=== PATIENT | male | born 1960 | race Asian ===

== ENCOUNTER 2019-11-04 12:48 | Emergency (ER) | payer MEDICAID ==
[~2019-11-04] VITALS: Ht 175.3 cm; Wt 129.1 kg
[2019-11-04] MEDS ORDERED: HYDR-1475 PO (12:55)
[2019-11-04] MEDS ORDERED: LABE100T8 PO (12:55)
[2019-11-04] MEDS ORDERED: AMLO5TAB9 PO (12:55)
[2019-11-04 14:14] LABS: BASOPHILS % (AUTO) 0.4 % (0.0-2.0); HEMATOCRIT 41.9 % (41-53); HEMOGLOBIN 13.9 g/dL (13.5-17.5); LYMPHOCYTES # (AUTO) 2.2 K/uL (1.0-4.8); LYMPHOCYTES % (AUTO) 15.8 % (22.0-44.0); MEAN CORPUSCULAR HGB CONC 33.2 G/dL (31.0-37.0); MEAN CORPUSCULAR VOLUME 90 fL (80-100); MONOCYTES % (AUTO) 7.3 % (2.0-9.0); NEUTROPHILS # (AUTO) 10.4 K/uL (1.8-7.7); NEUTROPHILS % (AUTO) 74.5 % (40.0-70.0); PLATELET COUNT (AUTO) 352 K/uL (150-450); RED BLOOD CELL COUNT(AUTO) 4.64 MIL/uL (4.50-5.90); RED CELL DISTRIBUTION WIDTH 13.1 % (11.5-14.5)
[2019-11-04 14:34] LABS: ANION GAP 8 mmol/L (8-16); CALCIUM, TOTAL 8.9 mg/dL (8.8-10.5); CARBON DIOXIDE 28 mmol/L (22-29); CHLORIDE 98 mmol/L (98-107); CREATININE 1.08 mg/dL (0.60-1.30); GLOMERULAR FILTR. RATE CALC > 60 mL/min (>60); GLUCOSE,RANDOM 290 mg/dL (70-110); POTASSIUM 3.6 mmol/L (3.5-5.1); SODIUM SERUM 134 mmol/L (136-145); UREA NITROGEN, BLOOD 15 mg/dL (7-18)
[2019-11-04 14:37] LABS: ALANINE AMINOTRANSFERASE 30 U/L (12-78); ALBUMIN 3.3 g/dL (3.4-5.0); ALKALINE PHOSPHATASE 52 U/L (46-116); ASPARTATE AMINOTRANSFERASE 19 U/L (15-37); BILIRUBIN,TOTAL 0.3 mg/dL (0.1-1.0); LIPASE 140 U/L (73-393); TOTAL PROTEIN, SERUM 7.8 g/dL (6.4-8.2)
[2019-11-04] MEDS ORDERED: IOVERSOL 350 MG/ML 150 ML VIAL ONE (15:11)
[2019-11-04] MEDS ORDERED: SODIUM CHLORIDE 0.9% 100 ML ONE (15:11)
[2019-11-04] MEDS ORDERED: MetroNIDAZOLE 500 MG/NACL 100 ML IV ONE (17:30)
[2019-11-04] MEDS ORDERED: CIPROFLOXACIN 400 MG/D5% WATER 200 ML IV ONE (17:30)
[2019-11-04 18:46] VITALS: BP 124/74
== END 2019-11-04 18:48 | disposition home or self-care (01) ==
LOC: EMS 12:50
DX: K57.92 Diverticulitis of intestine, part unspecified, without perforation or abscess without bleeding (principal); I25.10 Atherosclerotic heart disease of native coronary artery without angina pectoris; I10 Essential (primary) hypertension; F17.210 Nicotine dependence, cigarettes, uncomplicated
CPT/HCPCS: 36415; 74177; 80053; 83690; 84484; 85025; 93005; 96365; 96368; 99285; J0744; J3490; J7050; Q9967

== ENCOUNTER 2019-11-09 10:45 | Inpatient (IN) | payer MEDICAID ==
[~2019-11-09] VITALS: Ht 175.3 cm; Wt 83.6 kg
[~2019-11-09 10:45] MED LIST: AMLO5TAB9 PO; HYDR-1475 PO; LABE100T8 PO
[2019-11-09] MEDS ORDERED: KETOROLAC TROMETHAMINE 30 MG/ML VIAL IVP ONE (12:30)
[2019-11-09] MEDS ORDERED: ONDANSETRON HCL 4 MG/2 ML VIAL IVP ONE (12:30)
[2019-11-09] MEDS ORDERED: SODIUM CHLORIDE 0.9% 1,000 ML IV ONE ×3 (12:30→22:00)
[2019-11-09 12:47] LABS: BASOPHILS % (AUTO) 0.7 % (0.0-2.0); EOSINOPHILS % (AUTO) 1.4 % (1.0-6.0); HEMATOCRIT 41.2 % (41-53); LYMPHOCYTES # (AUTO) 2.1 K/uL (1.0-4.8); LYMPHOCYTES % (AUTO) 11.5 % (22.0-44.0); MEAN CORPUSCULAR HEMOGLOBIN 30.3 pg (26.0-34.0); MEAN CORPUSCULAR VOLUME 89 fL (80-100); MONOCYTES # (AUTO) 1.4 K/uL (0.1-1.0); MONOCYTES % (AUTO) 7.9 % (2.0-9.0); NEUTROPHILS # (AUTO) 14.4 K/uL (1.8-7.7); NEUTROPHILS % (AUTO) 78.5 % (40.0-70.0); PLATELET COUNT (AUTO) 431 K/uL (150-450); RED BLOOD CELL COUNT(AUTO) 4.63 MIL/uL (4.50-5.90)
[2019-11-09 12:56] LABS: CALCIUM, TOTAL 9.4 mg/dL (8.8-10.5); CREATININE 1.25 mg/dL (0.60-1.30); POTASSIUM 3.6 mmol/L (3.5-5.1)
[2019-11-09 13:01] LABS: ALBUMIN 3.3 g/dL (3.4-5.0); BILIRUBIN,TOTAL 0.4 mg/dL (0.1-1.0)
[2019-11-09 15:03] LABS: APPEARANCE,URINE CLEAR (CLEAR); BILIRUBIN,URINE NEGATIVE (NEGATIVE); GLUCOSE, URINE (UA) NEGATIVE (NEGATIVE); KETONES,URINE NEGATIVE (NEGATIVE); LEUKOCYTE ESTERASE ,URINE TRACE (NEGATIVE); NITRATE,URINE NEGATIVE (NEGATIVE); OCCULT BLOOD,URINE NEGATIVE (NEGATIVE); PROTEIN,URINE NEGATIVE (NEGATIVE); UROBILINOGEN,URINE 0.2 mg/dL (<=1.0)
[2019-11-09] MEDS ORDERED: IOVERSOL 350 MG/ML 100 ML VIAL ONE (15:22)
[2019-11-09] MEDS ORDERED: SODIUM CHLORIDE 0.9% 100 ML ONE (15:22)
[2019-11-09 15:44] LABS: BACTERIA,URINE Rare /HPF (None Seen); RBC,URINE 0-2 /HPF (0-2); SQUAMOUS EPITHELIAL CELL,UR Rare /LPF (None Seen)
[2019-11-09] MEDS ORDERED: PIPERACILLIN/TAZO 3.375 GM/D5W 50 ML IV ONE (17:00)
[2019-11-09] MEDS ORDERED: 0.9% SODIUM CHLORIDE 10 ML SYRINGE IVP PRN (18:45)
[2019-11-09] MEDS ORDERED: ACETAMINOPHEN 325 MG TABLET PO PRN ×2 (18:45→22:00)
[2019-11-09] MEDS ORDERED: ONDANSETRON HCL 4 MG/2 ML VIAL IVP PRN ×2 (18:45→22:00)
[2019-11-09 18:47] VITALS: BP 130/72
[2019-11-09 20:06] VITALS: BP 117/70
[2019-11-09] MEDS ORDERED: MORPHINE SULFATE 2 MG/ML SYRINGE IVP PRN (22:00)
[2019-11-09] MEDS ORDERED: BISACODYL 10 MG RECTAL RECTAL SUPPOSITORY PR PRN (22:00)
[2019-11-09] MEDS ORDERED: ZOLPIDEM TARTRATE 5 MG TABLET PO PRN (22:00)
[2019-11-09] MEDS ORDERED: MAGNESIUM HYDROXIDE SUSPENSION 30 ML UDCUP PO PRN (22:00)
[2019-11-09] MEDS: MetroNIDAZOLE 500 MG/NACL 100 ML IV SCH (22:33)
[2019-11-09 23:31] VITALS: BP 121/75
[2019-11-09] MEDS: HEPARIN SODIUM,PORCINE 5,000 UNITS/ML VIAL SQ SCH (23:50)
[2019-11-09] MEDS: PIPERACILLIN/TAZO 3.375 GM/D5W 50 ML IV SCH (23:50)
[2019-11-09] MEDS: HYDROCODONE/ACETAMINOPHEN 5-325 MG TABLET PO PRN (23:59)
[2019-11-10 05:13] VITALS: BP 129/69
[2019-11-10] MEDS: PIPERACILLIN/TAZO 3.375 GM/D5W 50 ML IV SCH ×4 (05:47→23:25)
[2019-11-10 06:01] LABS: BASOPHILS % (AUTO) 0.3 % (0.0-2.0); EOSINOPHILS % (AUTO) 1.7 % (1.0-6.0); HEMATOCRIT 36.9 % (41-53); HEMOGLOBIN 12.5 g/dL (13.5-17.5); LYMPHOCYTES % (AUTO) 13.9 % (22.0-44.0); MEAN CORPUSCULAR HEMOGLOBIN 30.3 pg (26.0-34.0); MEAN CORPUSCULAR HGB CONC 33.9 G/dL (31.0-37.0); MEAN CORPUSCULAR VOLUME 90 fL (80-100); MONOCYTES # (AUTO) 1.1 K/uL (0.1-1.0); MONOCYTES % (AUTO) 7.8 % (2.0-9.0); NEUTROPHILS # (AUTO) 10.9 K/uL (1.8-7.7); NEUTROPHILS % (AUTO) 76.3 % (40.0-70.0); PLATELET COUNT (AUTO) 391 K/uL (150-450); RED BLOOD CELL COUNT(AUTO) 4.12 MIL/uL (4.50-5.90); RED CELL DISTRIBUTION WIDTH 12.8 % (11.5-14.5)
[2019-11-10 06:20] LABS: ALANINE AMINOTRANSFERASE 25 U/L (12-78); ALBUMIN 2.8 g/dL (3.4-5.0); ALKALINE PHOSPHATASE 45 U/L (46-116); ANION GAP 8 mmol/L (8-16); ASPARTATE AMINOTRANSFERASE 25 U/L (15-37); BILIRUBIN,TOTAL 0.5 mg/dL (0.1-1.0); CALCIUM, TOTAL 8.6 mg/dL (8.8-10.5); CARBON DIOXIDE 26 mmol/L (22-29); CHLORIDE 101 mmol/L (98-107); CREATININE 1.15 mg/dL (0.60-1.30); GLOMERULAR FILTR. RATE CALC > 60 mL/min (>60); GLUCOSE,RANDOM 127 mg/dL (70-110); POTASSIUM 3.6 mmol/L (3.5-5.1); SODIUM SERUM 135 mmol/L (136-145); TOTAL PROTEIN, SERUM 7.1 g/dL (6.4-8.2); UREA NITROGEN, BLOOD 13 mg/dL (7-18)
[2019-11-10] MEDS: MetroNIDAZOLE 500 MG/NACL 100 ML IV SCH ×3 (06:24→21:34)
[2019-11-10 07:56] VITALS: BP 112/74
[2019-11-10] MEDS: HEPARIN SODIUM,PORCINE 5,000 UNITS/ML VIAL SQ SCH ×3 (08:30→23:25)
[2019-11-10] MEDS: DOCUSATE SODIUM 100 MG CAPSULE PO SCH ×2 (08:31→20:09)
[2019-11-10] MEDS: PANTOPRAZOLE SODIUM 40 MG DR TABLET PO SCH (08:31)
[2019-11-10 11:57] VITALS: BP 145/87
[2019-11-10 16:20] VITALS: BP 133/78
[2019-11-10 19:11] VITALS: BP 144/87
[2019-11-10] MEDS: HYDROCODONE/ACETAMINOPHEN 5-325 MG TABLET PO PRN (19:36)
[2019-11-10 23:46] VITALS: BP 131/74
[2019-11-11] MEDS: HYDROCODONE/ACETAMINOPHEN 5-325 MG TABLET PO PRN (02:11)
[2019-11-11 04:45] VITALS: BP 123/85
[2019-11-11] MEDS: PIPERACILLIN/TAZO 3.375 GM/D5W 50 ML IV SCH ×2 (05:48→11:52)
[2019-11-11] MEDS: MetroNIDAZOLE 500 MG/NACL 100 ML IV SCH (06:20)
[2019-11-11 06:46] LABS: BASOPHILS % (AUTO) 0.1 % (0.0-2.0); EOSINOPHILS % (AUTO) 1.6 % (1.0-6.0); HEMATOCRIT 37.3 % (41-53); HEMOGLOBIN 12.8 g/dL (13.5-17.5); LYMPHOCYTES # (AUTO) 2.2 K/uL (1.0-4.8); LYMPHOCYTES % (AUTO) 15.8 % (22.0-44.0); MEAN CORPUSCULAR HEMOGLOBIN 30.5 pg (26.0-34.0); MEAN CORPUSCULAR HGB CONC 34.2 G/dL (31.0-37.0); MEAN CORPUSCULAR VOLUME 89 fL (80-100); MONOCYTES % (AUTO) 6.8 % (2.0-9.0); NEUTROPHILS # (AUTO) 10.7 K/uL (1.8-7.7); NEUTROPHILS % (AUTO) 75.7 % (40.0-70.0); PLATELET COUNT (AUTO) 412 K/uL (150-450); RED BLOOD CELL COUNT(AUTO) 4.19 MIL/uL (4.50-5.90); RED CELL DISTRIBUTION WIDTH 12.8 % (11.5-14.5)
[2019-11-11 07:09] LABS: ANION GAP 9 mmol/L (8-16); CALCIUM, TOTAL 8.5 mg/dL (8.8-10.5); CARBON DIOXIDE 27 mmol/L (22-29); CHLORIDE 103 mmol/L (98-107); CREATININE 1.12 mg/dL (0.60-1.30); GLOMERULAR FILTR. RATE CALC > 60 mL/min (>60); GLUCOSE,RANDOM 112 mg/dL (70-110); POTASSIUM 3.6 mmol/L (3.5-5.1); SODIUM SERUM 139 mmol/L (136-145); UREA NITROGEN, BLOOD 10 mg/dL (7-18)
[2019-11-11 07:38] VITALS: BP 126/64
[2019-11-11] MEDS: HEPARIN SODIUM,PORCINE 5,000 UNITS/ML VIAL SQ SCH (08:00)
[2019-11-11] MEDS: PANTOPRAZOLE SODIUM 40 MG DR TABLET PO SCH (08:01)
[2019-11-11] MEDS: DOCUSATE SODIUM 100 MG CAPSULE PO SCH (08:01)
[2019-11-11 11:30] VITALS: BP 138/73
[2019-11-11] MEDS ORDERED: LEVO-72 PO (11:54)
[2019-11-11] MEDS ORDERED: AMLO2.5T4 PO (11:54)
[2019-11-11] MEDS ORDERED: METR500 PO (11:54)
== END 2019-11-11 14:09 | disposition home or self-care (01) | DRG 720 ==
LOC: EMS 10:46 → 4E 17:02
PROVIDERS: ADMIT Internal Medicine; ATTEND Internal Medicine
DX: A41.9 Sepsis, unspecified organism (principal); E44.0 Moderate protein-calorie malnutrition; E87.1 Hypo-osmolality and hyponatremia; K57.32 Diverticulitis of large intestine without perforation or abscess without bleeding; I10 Essential (primary) hypertension; F17.210 Nicotine dependence, cigarettes, uncomplicated; I25.10 Atherosclerotic heart disease of native coronary artery without angina pectoris
CPT/HCPCS: 74177; G0378; J1644; J1885; J2270; J2405; J2543; J3490; J7030; J7050

== ENCOUNTER 2024-04-02 22:37 | Emergency (ER) | payer MEDICAID, OTHER ==
[~2024-04-02] VITALS: Ht 176.5 cm; Wt 75.9 kg
[~2024-04-02 22:37] MED LIST changes: +AMLO2.5T96 PO; -AMLO5TAB9 PO; -HYDR-1475 PO; -LABE100T8 PO; +LEVO-72 PO; +METR500 PO
[2024-04-02 22:40] VITALS: TEMP 98
[2024-04-02 23:08] LABS: BASOPHILS % (AUTO) 0.8 % (0.0-2.0); EOSINOPHILS % (AUTO) 1.7 % (1.0-6.0); HEMATOCRIT 44.9 % (41-53); HEMOGLOBIN 15.5 g/dL (13.5-17.5); LYMPHOCYTES # (AUTO) 2.9 K/uL (1.0-4.8); LYMPHOCYTES % (AUTO) 21.5 % (22.0-44.0); MEAN CORPUSCULAR HEMOGLOBIN 30.2 pg (26.0-34.0); MEAN CORPUSCULAR HGB CONC 34.6 G/dL (31.0-37.0); MEAN CORPUSCULAR VOLUME 87 fL (80-100); MONOCYTES # (AUTO) 0.8 K/uL (0.1-1.0); MONOCYTES % (AUTO) 5.9 % (2.0-9.0); NEUTROPHILS # (AUTO) 9.5 K/uL (1.8-7.7); NEUTROPHILS % (AUTO) 70.1 % (40.0-70.0); PLATELET COUNT (AUTO) 309 K/uL (150-450); RED BLOOD CELL COUNT(AUTO) 5.15 MIL/uL (4.50-5.90); RED CELL DISTRIBUTION WIDTH 12.7 % (11.5-14.5); WHITE BLOOD COUNT (AUTO) 13.6 K/uL (4.5-11.0)
[2024-04-02 23:24] LABS: TROPONIN I-HIGH SENSITIVITY 25 ng/L (<76)
[2024-04-02 23:25] LABS: CALCIUM, TOTAL 9.9 mg/dL (8.8-10.5); CREATININE 1.3 mg/dL (0.60-1.30); POTASSIUM 3.3 mmol/L (3.5-5.1)
[2024-04-03 00:13] VITALS: BP 128/69; PULSE 76; RESP 18
[2024-04-03] MEDS ORDERED: METH-661 PO (00:25)
[2024-04-03] MEDS ORDERED: IBUP-1492 PO (00:25)
[2024-04-03] MEDS: METHOCARBAMOL 500 MG TABLET PO ONE (00:26)
[2024-04-03] MEDS: INSULIN REGULAR, HUMAN 100 UNITS/ML SQ ONE (00:27)
[2024-04-03] MEDS: KETOROLAC TROMETHAMINE 60 MG/2 ML VIAL IM ONE (00:28)
[2024-04-03] MEDS ORDERED: KETOROLAC TROMETHAMINE 30 MG/ML VIAL IM ONE (00:30)
== END 2024-04-03 00:36 | disposition home or self-care (01) ==
LOC: EMS 22:37
DX: R07.89 Other chest pain (principal); M79.18 Myalgia, other site; I10 Essential (primary) hypertension; F17.210 Nicotine dependence, cigarettes, uncomplicated
CPT/HCPCS: 99285; 71045; 80048; 84484; 85025; 36415; 93005; 96372; J1815; J1885

== ENCOUNTER 2025-05-30 09:29 | Emergency (ER) | payer MEDICARE, OTHER ==
[~2025-05-30] VITALS: Ht 175.3 cm; Wt 75.0 kg
[~2025-05-30 09:29] MED LIST changes: +IBUP-1492 PO; +METH-661 PO
[2025-05-30] MEDS ORDERED: LABE100T8 PO (09:46)
[2025-05-30] MEDS ORDERED: HYDR12.54 PO (09:46)
[2025-05-30] MEDS ORDERED: METF-1211 PO (09:46)
[2025-05-30 10:06] LABS: GLUCOMETER DEV NAME(LOC) ERT.7; GLUCOSE,POINT OF CARE 331 MG/DL (70-110)
[2025-05-30 10:10] LABS: PLATELET COUNT (AUTO) 365 K/uL (150-450); RED BLOOD CELL COUNT(AUTO) 4.82 MIL/uL (4.50-5.90); RED CELL DISTRIBUTION WIDTH 13.1 % (11.5-14.5); WHITE BLOOD COUNT (AUTO) 11.4 K/uL (4.5-11.0)
[2025-05-30 10:16] LABS: CALCIUM, TOTAL 9.3 mg/dL (8.8-10.5); CREATININE 0.93 mg/dL (0.60-1.30); GLOMERULAR FILTR. RATE CALC > 60 mL/min (>60); GLUCOSE,RANDOM 297 mg/dL (70-110); SODIUM SERUM 134 mmol/L (136-145); UREA NITROGEN, BLOOD 7 mg/dL (7-18)
[2025-05-30 10:21] LABS: ASPARTATE AMINOTRANSFERASE 19.0 U/L (15-37); TOTAL PROTEIN, SERUM 7.9 g/dL (6.4-8.2)
[2025-05-30] MEDS: KETOROLAC TROMETHAMINE 30 MG/ML VIAL IVP ONE (10:27)
[2025-05-30] MEDS: SODIUM CHLORIDE 0.9% 1,000 ML IV ONE (10:27)
[2025-05-30] MEDS: ONDANSETRON HCL 4 MG/2 ML VIAL IVP ONE (10:28)
[2025-05-30] MEDS ORDERED: SODIUM CHLORIDE 0.9% 100 ML ONE (10:35)
[2025-05-30] MEDS ORDERED: IOHEXOL 350 MG/ML 100 ML VIAL ONE (10:35)
[2025-05-30 12:03] LABS: APPEARANCE,URINE CLEAR (CLEAR); GLUCOSE, URINE (UA) 150-200 mg/dL (NEGATIVE); LEUKOCYTE ESTERASE ,URINE NEGATIVE (NEGATIVE); NITRATE,URINE NEGATIVE (NEGATIVE); OCCULT BLOOD,URINE NEGATIVE (NEGATIVE); SPECIFIC GRAVITIY, URINE 1.028 (1.003-1.030)
[2025-05-30 12:05] LABS: GLUCOMETER DEV NAME(LOC) ER.7; GLUCOSE,POINT OF CARE 196 MG/DL (70-110)
[2025-05-30 12:14] VITALS: BP 118/68; PULSE 79; RESP 14; O2SAT 96
[2025-05-30] MEDS ORDERED: CIPROFLOXACIN 400 MG/D5% WATER 200 ML IV ONE (12:30)
[2025-05-30] MEDS ORDERED: MetroNIDAZOLE 500 MG/NACL 100 ML IV ONE (12:30)
[2025-05-30] MEDS ORDERED: CYAN500T56 PO (12:36)
[2025-05-30] MEDS ORDERED: ATOR40TA71 PO (12:36)
[2025-05-30] MEDS ORDERED: ASCO500T20 PO (12:36)
[2025-05-30] MEDS ORDERED: AMLO-258 PO (12:36)
[2025-05-30] MEDS ORDERED: FOLI0.4T3 PO (12:36)
[2025-05-30] MEDS ORDERED: PYRI-12 PO (12:36)
[2025-05-30] MEDS ORDERED: CHOL200074 PO (12:36)
[2025-05-30] MEDS: CIPROFLOXACIN HCL 250 MG TABLET PO ONE (12:40)
[2025-05-30] MEDS ORDERED: CIPR-515 PO (12:58)
[2025-05-30] MEDS ORDERED: ACET-3385 PO (12:58)
[2025-05-30] MEDS ORDERED: METR500 PO (12:58)
== END 2025-05-30 13:00 | disposition left against medical advice (07) ==
LOC: EMS 10:04
DX: K52.9 Noninfective gastroenteritis and colitis, unspecified (principal); R10.32 Left lower quadrant pain; I10 Essential (primary) hypertension; I25.10 Atherosclerotic heart disease of native coronary artery without angina pectoris; Z79.899 Other long term (current) drug therapy
CPT/HCPCS: 99285; 74177; 96374; 96375; 80048; 80076; 81001; 82962; 83690; 85025; 36415; J1885; Q9967; J2405; J7030; J7050